=== PATIENT | female | born 1955 | race American Indian/Alaskan Native ===

== ENCOUNTER 2019-04-24 09:16 | Outpatient (CLI) | payer OTHER ==
[2019-04-24] MEDS ORDERED: FLUSH HEPARIN IV ONE (10:31)
--- NOTE | 2019-04-24 13:48 | Nuclear Medicine Report ---
NM bone scan whole body INDICATION / CLINICAL INFORMATION: MBC,RE-STAGING EVALUATION,COMPARE TO LAST, AT PREVIOUS LOCATION. TRACER:: Technetium 99m MDP 25 mCi IV injection. COMPARISON: No relevant prior imaging study available. FINDINGS: Following injection of the above tracer and appropriate delay, whole body imaging was performed with injection. Uptake of tracer is physiologic. Low-grade uptake is seen at the sternoclavicular joints, spine and left hand in a distribution typical of DJD. No suspicious uptake is present to suggest meta static disease. IMPRESSION: Mild DJD. Signer Name: Cliff Alejandro MD Signed: 04/24/2019 1:43 PM Workstation Name: [email or web address]
== END 2019-04-24 09:17 | disposition home or self-care (01) ==
LOC: NM 09:16
PROVIDERS: ATTEND Internal Medicine Hematology & Oncology
DX: M19.012 Primary osteoarthritis, left shoulder (principal); M19.011 Primary osteoarthritis, right shoulder; M19.042 Primary osteoarthritis, left hand; M47.816 Spondylosis without myelopathy or radiculopathy, lumbar region; C50.419 Malignant neoplasm of upper-outer quadrant of unspecified female breast
CPT/HCPCS: 78306; A9503; J1642

== ENCOUNTER 2019-07-30 09:06 | Outpatient (CLI) | payer OTHER ==
--- NOTE | 2019-07-30 13:37 | Nuclear Medicine Report ---
NUCLEAR MEDICINE BONE SCAN, WHOLE BODY INDICATION: Breast cancer, right hip pain. TECHNIQUE: 26.3 mCi of Tc-99m MDP were injected IV. Whole body images were obtained. COMPARISON: Comparison made with previous bone scan of 04/24/2019.. FINDINGS: Skeletal Structures: No focal areas of asymmetric activity. Mild, relatively symmetric, periarticular activity which is likely degenerative. Skeletal Lesions: None. Soft Tissues: Normal. Kidneys: Normal, symmetric activity. Additional Findings: None. IMPRESSION: 1. No bone scan findings to suggest osseous metastatic disease.. Signer Name: Pk Riley MD Signed: 07/30/2019 1:32 PM Workstation Name: [id number]
== END 2019-07-30 09:07 | disposition home or self-care (01) ==
LOC: NM 09:06
PROVIDERS: ATTEND Internal Medicine Hematology & Oncology
DX: C50.419 Malignant neoplasm of upper-outer quadrant of unspecified female breast (principal); D63.0 Anemia in neoplastic disease; M25.551 Pain in right hip
CPT/HCPCS: 78306; A9503

== ENCOUNTER 2019-11-01 09:35 | Outpatient (CLI) | payer OTHER ==
--- NOTE | 2019-11-01 14:01 | Nuclear Medicine Report ---
NM bone scan whole body INDICATION / CLINICAL INFORMATION: BREAST CANCER/COMPARE TO LAST ONE. TRACER: Technetium 99m MDP 26.7 mCi IV injection. COMPARISON: Prior bone scan 07/30/2019. FINDINGS: Physiologic uptake of tracer is again noted. Negative for areas of significantly increased or decreas ed tracer activity. IMPRESSION: Negative for metabolically active metastatic disease. Signer Name: Cliff Alejandro MD Signed: 11/01/2019 1:56 PM Workstation Name: [id number]
== END 2019-11-01 09:36 | disposition home or self-care (01) ==
LOC: NM 09:35
PROVIDERS: ATTEND Internal Medicine Hematology & Oncology
DX: C50.419 Malignant neoplasm of upper-outer quadrant of unspecified female breast (principal); D64.9 Anemia, unspecified; D63.0 Anemia in neoplastic disease; M06.9 Rheumatoid arthritis, unspecified
CPT/HCPCS: 78306; A9503